=== PATIENT | female | born 1960 | race Caucasian/White ===

== ENCOUNTER → 2017-05-01 | Outpatient (CLI) | payer OTHER | LOC: ULTRA 08:45 | DX: R10.11 Right upper quadrant pain (principal) ==

== ENCOUNTER 2017-11-01 03:33 | Emergency (ER) | payer OTHER ==
[~2017-11-01] VITALS: Ht 160 cm; Wt 102.1 kg
[2017-11-01 04:07] LABS: ABSOLUTE NEUTROPHILS 9.1 thou/uL (1.4-8.2); BASOPHILS 0.5 % (0.0-2.0); EOSINOPHILS 0.6 % (0.0-3.0); HEMATOCRIT 42.9 % (37.0-47.0); HEMOGLOBIN 14.5 gm/dL (12.0-15.0); LYMPHOCYTES 15.5 % (24.0-44.0); MCH 30.3 pg (26.0-34.0); MCHC 33.7 g/dL (28.0-37.0); MCV 89.8 fL (80.0-100.0); MONOCYTES 5.8 % (1.0-8.0); PLATELET COUNT 311 thou/uL (150-400); POLYS 77.6 % (36.0-66.0); RBC 4.78 mil/uL (4.20-5.00); RDW 13.9 % (10.5-14.5); WBC 11.8 thou/uL (4.0-11.0)
[2017-11-01 04:16] LABS: CALCIUM 10.5 mg/dL (8.5-10.1); CREATININE 0.8 mg/dL (0.6-1.0); POTASSIUM 4.7 mmol/L (3.5-5.1)
[2017-11-01 04:21] LABS: ALBUMIN 4.1 g/dL (3.4-5.0); TOTAL BILIRUBIN 0.3 mg/dL (<0.1-1.0); TOTAL PROTEIN 7.3 g/dL (6.4-8.2)
[2017-11-01 04:31] LABS: URINE BILIRUBIN NEGATIVE (Negative); URINE BLOOD TRACE (Negative); URINE CLARITY CLEAR; URINE COLOR YELLOW; URINE GLUCOSE-RANDOM* NEGATIVE (Negative); URINE KETONES NEGATIVE (Negative); URINE LEUKOCYTES-REFLEX NEGATIVE (Negative); URINE NITRITE-REFLEX NEGATIVE (Negative); URINE PROTEIN (DIPSTICK) NEGATIVE (Negative); URINE SPECIFIC GRAVITY <= 1.005 (1.005-1.035); URINE UROBILINOGEN 0.2 E.U./dl (0.2-1.0)
[2017-11-01 05:43] VITALS: BP 144/82
== END 2017-11-01 05:45 | disposition home or self-care (01) ==
LOC: ER 03:33
PROVIDERS: Emergency Medicine
DX: R10.11 Right upper quadrant pain (principal)

== ENCOUNTER 2017-11-24 05:27 | Day surgery (SDC) | payer OTHER ==
[~2017-11-24] VITALS: Ht 160 cm; Wt 102.1 kg
--- NOTE | ~2017-11-24 | EKG ---
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
[~2017-11-24 05:27] MED LIST: ABILIFY 5 MG TAB5 MG PO; CELEBREX 200 M200 M1 PO; CLONAZEPAM 0.50.5 M1 PO; CYCLOBENZAPRINE5 MG PO; DULOXETINE HCL60 MG PO; LISINOPRIL10 MG PO; MS CONTIN 30 MG30 M1 PO; OXYCONTIN20 M1 PO; TUMS PO; VENTOLIN HFA 1818 GM INH
[2017-11-24 06:45] LABS: HEMATOCRIT 41.7 % (37.0-47.0); HEMOGLOBIN 14.3 gm/dL (12.0-15.0)
[2017-11-24 07:03] VITALS: BP 123/77
[2017-11-24] MEDS ORDERED: ONDANSETRON HCL4 M2 PO (10:10)
[2017-11-24] MEDS ORDERED: HYDROCODONE-AP1 EAC6 PO (10:10)
[2017-11-24 10:42] VITALS: BP 123/77
== END 2017-11-24 11:34 | disposition home or self-care (01) ==
LOC: OR 05:27 → TBA 05:28 → OR 07:57
PROVIDERS: Surgery
DX: K80.10 Calculus of gallbladder with chronic cholecystitis without obstruction (principal); I10 Essential (primary) hypertension; M79.7 Fibromyalgia; F17.210 Nicotine dependence, cigarettes, uncomplicated; F32.9 Major depressive disorder, single episode, unspecified; F41.9 Anxiety disorder, unspecified; Z90.710 Acquired absence of both cervix and uterus; Z90.49 Acquired absence of other specified parts of digestive tract; Z98.890 Other specified postprocedural states; Z79.899 Other long term (current) drug therapy; Z87.19 Personal history of other diseases of the digestive system; Z96.642 Presence of left artificial hip joint; Z88.8 Allergy status to other drugs, medicaments and biological substances; Z79.891 Long term (current) use of opiate analgesic
CPT/HCPCS: 50010; 50101; 50249; 50411; 50558; 51975; 52265; 53310; 54022; 54118; 56525; 56526; 56632; 56639; 56641; 57119; 57130; 57131; 62110; 62900; 70005